=== PATIENT | male | born 1945 | race Hispanic/Latino ===

== ENCOUNTER 2016-10-24 13:02 | Outpatient (CLI) | payer MEDICARE ==
[2016-10-24] MEDS ORDERED: XYLOCAINE TOPICAL 4% TP ONE ×2 (13:53→15:15)
[2016-10-24] MEDS ORDERED: SANTYL TP ONE ×2 (14:34→15:12)
== END 2016-10-24 13:03 | disposition home or self-care (01) ==
LOC: WOUND 13:02
PROVIDERS: ATTEND Surgery
DX: I87.2 Venous insufficiency (chronic) (peripheral) (principal); E11.621 Type 2 diabetes mellitus with foot ulcer; L97.421 Non-pressure chronic ulcer of left heel and midfoot limited to breakdown of skin; L97.521 Non-pressure chronic ulcer of other part of left foot limited to breakdown of skin; I10 Essential (primary) hypertension; E11.51 Type 2 diabetes mellitus with diabetic peripheral angiopathy without gangrene; Z87.891 Personal history of nicotine dependence; Z86.718 Personal history of other venous thrombosis and embolism; Z85.048 Personal history of other malignant neoplasm of rectum, rectosigmoid junction, and anus
CPT/HCPCS: 11042; 11043; G0463

== ENCOUNTER 2016-10-29 15:36 | Outpatient (CLI) | payer MEDICARE ==
[2016-10-29 16:38] LABS: Blood Urea Nitrogen 11 mg/dL (9-20)
--- NOTE | 2016-10-30 07:25 | XRay Report ---
Chest 2 views: History: Chest pain. Findings: Normal cardiomediastinal silhouette. Trachea is midline. No consolidation, pneumothorax or pleural effusion. Impression: No acute cardiopulmonary findings.
--- NOTE | 2016-10-31 09:56 | Magnetic Resonance Report ---
MR LOWER EXTREMITY JOINT LEFT WITH AND WITHOUT CONTRAST HISTORY: Left foot ulceration, pain, swelling, evaluate for osteomyelitis. FINDINGS: Subtle soft tissue ulceration in the lateral foot and left second toe are noted. There is mild nonspecific subcutaneous edema and soft tissue enhancement in these areas consistent with a mild cellulitis. There is no evidence for focal abscess. The bone marrow signal within the visualized left foot is within normal limits. No T1 changes, bone marrow edema or abnormal enhancement following IV gadolinium is detected. Mild osteoarthritic changes are noted. No erosive joint pathology. The musculotendinous structures are intact. The visualized Achilles tendon is normal. The plantar fascia and muscular structures within the left foot are unremarkable. IMPRESSION: Soft tissue findings as described above which probably represent a mild cellulitis. There is no evidence for abscess or findings suggestive of osteomyelitis.
== END 2016-10-29 15:37 | disposition home or self-care (01) ==
LOC: MRI 15:36
PROVIDERS: ATTEND Surgery
DX: L97.529 Non-pressure chronic ulcer of other part of left foot with unspecified severity (principal); M19.072 Primary osteoarthritis, left ankle and foot; R07.9 Chest pain, unspecified
CPT/HCPCS: 36415; 71020; 73723; 82565; 84520; A9577